=== PATIENT | male | born 1950 | race Caucasian/White ===

== ENCOUNTER 2016-11-07 05:24 | Day surgery (SDC) | payer BC ==
[2016-11-07] MEDS ORDERED: Dextrose 5%-0.45% NaCl 1,000 ML IV SCH (06:00)
[2016-11-07] MEDS ORDERED: Sodium Chloride 0.9% 10 ML Syringe FLUSH PRN (06:00)
[2016-11-07] MEDS ORDERED: Midazolam 1 MG/ML 2 ML SDV ONE (06:14)
[2016-11-07] MEDS ORDERED: fentaNYL 100 MCG/2 ML SDV ONE (06:15)
[2016-11-07] MEDS ORDERED: fentaNYL 100 MCG/2 ML SDV IV ONE ×2 (06:35→06:36)
[2016-11-07] MEDS ORDERED: Midazolam 1 MG/ML 2 ML SDV IV ONE ×6 (06:36→06:43)
--- NOTE | 2016-11-07 07:38 | OR ---
DATE: 11/07/2016 PROCEDURES: Total colonoscopy, NBI, and multiple pinch biopsies. INSTRUMENT USED: CF-H180AL Olympus video colonoscope. PREMEDICATIONS: Fentanyl 100 mcg intravenous, Versed 4 mg intravenous. Nasal 2 L O2. The procedure was done under pulse oximetry, BP recording, and monitoring specialist. INDICATIONS: The patient with rectal bleeding and increasing constipation unexplained and not responsive to medical measures. Colonoscopic examination is done for detection of any polypoid lesions and removal, endoscopic hemostasis therapy if needed. DESCRIPTION OF PROCEDURE: Initial rectal exam was unremarkable. Rigid anoscopy was normal. The colonoscope was passed with ease, some scattered diverticula were noted in the distal left colon along with deformity. The scope was passed with ease up to the ileocecal area, photographs were taken of the normal-appearing cecum identified by landmarks of appendiceal orifice and double-bulged ileocecal folds. No bleeding was noted from any of the visualized areas at the commencement of the examination. No stricture. No vascular ectasia. No large isolated ulcerations seen. No evidence of diffuse inflammatory bowel disease in the form of friability, contact bleeding, or ulcerations. Probing the proximal sides of folds and flexures, using adequate distention and clearing of the stool material, withdrawal of the scope was made. In the proximal sigmoid colon, 3 mm sized benign-appearing polyp was noted, NBI with magnification views were obtained, photographs were taken. The polyp was removed by multiple pinch biopsies. No bleeding was noted from any of the visualized areas at the completion of examination. IMPRESSION: 1. Diminutive sigmoid polyp. 2. Diverticulosis. The patient tolerated the procedure well. [facility] /[id number]
[2016-11-07 08:59] VITALS: BP 108/69
== END 2016-11-07 08:54 | disposition home or self-care (01) ==
LOC: DL.ENDO 05:24
PROVIDERS: ATTEND Internal Medicine Gastroenterology
DX: K63.5 Polyp of colon (principal); K57.30 Diverticulosis of large intestine without perforation or abscess without bleeding; E66.9 Obesity, unspecified; E78.5 Hyperlipidemia, unspecified; Z98.890 Other specified postprocedural states
CPT/HCPCS: 45380; J7042; J2250; J3010

== ENCOUNTER 2021-04-13 15:28 | Emergency (ER) | payer MEDICARE, BC ==
[2021-04-13] MEDS ORDERED: Amoxicillin/Clavulanate K 875-125 MG Tab PO ONE (15:29)
[2021-04-13] MEDS ORDERED: Sodium Chloride 0.9% 10 ML Syringe FLUSH PRN (16:05)
[2021-04-13 16:39] LABS: ANION GAP 10.4 mEq/L (7-13); CHLORIDE,CL 107 mmol/L (98-107); SODIUM,NA 142 mmol/L (136-145)
[2021-04-13] MEDS ORDERED: Iopamidol 612 MG/ML 100 ML Bottle IVPUSH ONE (17:29)
[2021-04-13] MEDS ORDERED: cefTRIAXone 2 GM in Sodium Chloride 0.9% 100 ML IV ONE (18:34)
[2021-04-13] MEDS ORDERED: Amoxicillin/Clavulanate K 875-125 MG Tab ONE (18:54)
[2021-04-13 20:21] VITALS: BP 142/90; PULSE 86
== END 2021-04-13 20:00 | disposition home or self-care (01) ==
LOC: DL.ED 15:28
DX: L03.213 Periorbital cellulitis (principal); E78.00 Pure hypercholesterolemia, unspecified; K21.9 Gastro-esophageal reflux disease without esophagitis; E66.9 Obesity, unspecified; Z68.27 Body mass index [BMI] 27.0-27.9, adult; Z79.82 Long term (current) use of aspirin
CPT/HCPCS: 36415; 70487; 80053; 83605; 85025; 86140; 96365; 99283-25; 99284; A9270-GY; J0696; Q9967